=== PATIENT | female | born 1955 | race Caucasian/White ===

== ENCOUNTER 2019-01-30 09:20 | Day surgery (SDC) | payer BC ==
[~2019-01-30 09:20] MED LIST: Metoclopramide 10 MG/2 ML SDV IV PRN; Sodium Chloride 0.9% 1,000 ML IV SCH
== END 2019-01-30 11:40 | disposition home or self-care (01) ==
LOC: LB.SDS 09:20
PROVIDERS: ATTEND Surgery
DX: Z12.11 Encounter for screening for malignant neoplasm of colon (principal); K57.92 Diverticulitis of intestine, part unspecified, without perforation or abscess without bleeding; Z88.2 Allergy status to sulfonamides; Z53.09 Procedure and treatment not carried out because of other contraindication
CPT/HCPCS: J7030

== ENCOUNTER 2019-04-17 07:05 | Day surgery (SDC) | payer BC ==
[2019-04-17] MEDS ORDERED: Atropine 0.4 MG/ML SDV ONE (09:30)
[2019-04-17] MEDS ORDERED: Midazolam 1 MG/ML 2 ML SDV ONE (09:30)
[2019-04-17] MEDS ORDERED: Propofol 1,000 MG/100 ML SDV ONE (09:30)
--- NOTE | 2019-04-17 10:21 | OR ---
DATE OF OPERATION: 04/17/2019 PREOPERATIVE DIAGNOSIS: Surveillance colonoscopy. POSTOPERATIVE DIAGNOSIS: Surveillance colonoscopy. PROCEDURE: Colonoscopy with polypectomy. ESTIMATED BLOOD LOSS: Minimal. COMPLICATIONS: None. INDICATION FOR THE PROCEDURE: The patient is a 63-year-old female who is here today for a colonoscopy. She last had a colonoscopy 8 years ago, was found to have a history of polyps at that time. She also recently had a bout of diverticulitis approximately 5 months ago. Has had no trouble since then. She is here today for surveillance colonoscopy. DESCRIPTION OF PROCEDURE: Informed consent was obtained from the patient. The patient was taken to the operating room, placed on table in left lateral decubitus position. Monitored anesthesia care was administered. Digital rectal exam performed and was normal. Colonoscope was then advanced through the anus directed toward the cecum. Cecum was reached and identified by appendiceal orifice and ileocecal valve. There was a small sessile polyp in the cecum. This did bleed on irrigation. Multiple cold forceps biopsies were taken. There was some persistent bleeding which did stop potentially further attempts of complete polypectomy hindered by the angles. It did appear some remaining polyp did remain. Decision was made to leave this for now due to bleeding concerns as well as wait for final pathology. Colonoscope then further withdrawn. No additional polyps were identified. She did have some moderate descending and sigmoid diverticulosis, both large and small. Colonoscope then slowly withdrawn into the rectum. Rectum was also otherwise unremarkable. Colonoscope then withdrawn fully. FINDINGS: Sigmoid and descending diverticulosis as well as cecal polyp. RECOMMENDATIONS: We will follow up on biopsy results and if benign, will need a repeat colonoscopy for further endoscopic polypectomy. BRENARDO /[id number]
== END 2019-04-17 11:00 | disposition home or self-care (01) ==
LOC: LB.SDS 07:05
PROVIDERS: ATTEND Surgery
DX: Z12.11 Encounter for screening for malignant neoplasm of colon (principal); K51.40 Inflammatory polyps of colon without complications; K57.30 Diverticulosis of large intestine without perforation or abscess without bleeding; Z88.2 Allergy status to sulfonamides; Z86.010 Personal history of colon polyps
CPT/HCPCS: 45380; 88305; G0121; J0461; J2250; J2704; J7030

== ENCOUNTER 2020-11-27 10:04 | Emergency (ER) | payer BC ==
[2020-11-27] MEDS ORDERED: Ondansetron 4 MG/2 ML SDV IVPUSH ONE (10:13)
--- NOTE | 2020-11-27 10:19 | EDM.PDOC ---
ED HPI GENERAL MEDICAL PROBLEM - General Chief Complaint: Gastrointestinal Problem Stated Complaint: abd pain Time Seen by Provider: 11/27/20 10:10 Source of Information: Reports: Patient History Limitations: Reports: No Limitations - History of Present Illness INITIAL COMMENTS - FREE TEXT/NARRATIVE: 64 year old female with PMH of diverticulitis presents with lower abd pain, in creased in LLQ since last night. Describes the pain as crampy, 8/10. States this feels like last episode of diverticulitis. Denies any CP, SOB, N/V/D (at this time), fever, cough, or MICHAEL. She took tylenol at 0630 AM without relief. 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: Reports: Acetaminophen Left Lower Abdomen Pain Score (Numeric/FACES): 4 - Related Data Allergies Allergy/AdvReac Type Severity Reaction Status Date / Time Sulfa (Sulfonamide Allergy Rash Verified 04/15/19 09:28 Antibiotics) Home Meds: Home Meds L.acidoph,Paracasei, B.lactis [Probiotic] 1 cap PO DAILY 11/27/20 [History] Past Medical History HEENT History: Reports: Impaired Vision Gastrointestinal History: Reports: Diverticulosis 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: Musculoskeletal History: Reports: Fibromyalgia - Past Surgical History HEENT Surgical History: Reports: None GI Surgical History: Reports: Colonoscopy, Polypectomy Social & Family History - Family History Family Medical History: No Pertinent Family History - Caffeine Use Caffeine Use: Reports: Tea ED ROS GENERAL - Review of Systems Review Of Systems: See Below Constitutional: Reports: Fever HEENT: Reports: No Symptoms Respiratory: Reports: No Symptoms Cardiovascular: Reports: No Symptoms Endocrine: Reports: No Symptoms GI/Abdominal: Reports: Abdominal Pain : Reports: No Symptoms Musculoskeletal: Reports: No Symptoms Skin: Reports: No Symptoms Neurological: Reports: No Symptoms Psychiatric: Reports: No Symptoms Hematologic/Lymphatic: Reports: No Symptoms Immunologic: Reports: No Symptoms ED EXAM, GI/ABD - Physical Exam Exam: See Below Exam Limited By: No Limitations General Appearance: Alert, Mild Distress Eyes: Bilateral: Normal Appearance Ears: Normal External Exam, Hearing Grossly Normal Nose: Normal Inspection, No Blood Throat/Mouth: Normal Inspection, Normal Voice Head: Atraumatic Neck: Normal Inspection, Non-Tender, Full Range of Motion Respiratory/Chest: No Respiratory Distress, Lungs Clear, Normal Breath Sounds, No Accessory Muscle Use, Chest Non-Tender Cardiovascular: Normal Peripheral Pulses, Regular Rate, Rhythm, No Edema, No JVD, No Murmur GI/Abdominal Exam: Normal Bowel Sounds, Soft, No Mass, Tender Back Exam: Normal Inspection, Full Range of Motion Extremities: Normal Inspection, Normal Range of Motion, Non-Tender, No Pedal Edema, Normal Capillary Refill Neurological: Alert, Oriented, Normal Cognition, Normal Gait, No Motor/Sensory Deficits Psychiatric: Normal Affect, Normal Mood Skin Exam: Warm, Dry, Intact, Normal Color, No Rash Lymphatic: No Adenopathy Course - Vital Signs Last Recorded V/S: Last Vital Signs Temp 99.0 F 11/27/20 10:14 Pulse 70 11/27/20 11:00 Resp 16 11/27/20 11:00 BP 133/78 11/27/20 11:00 Pulse Ox 94 L 11/27/20 11:00 - Orders/Labs/Meds Orders: Active Orders 24 hr Category Date Time Status Abdomen Pelvis w Cont [CT] Stat Exams 11/27/20 10:10 Taken Iopamidol [Isovue-300 (61%)] Med 11/27/20 11:11 Active 100 ml IV . DIRECTED PRN Sodium Chloride 0.9% [Normal Saline] Med 11/27/20 11:15 Active 50 ml FLUSH ONETIME Medication Orders Iopamidol (Iopamidol 612 Mg/Ml 100 Ml Bottle) 100 ml IV . DIRECTED PRN PRN Reason: RADIOLOGY EXAM Stop: 11/28/20 11:12 Sodium Chloride (Sodium Chloride 0.9% 50 Ml Sdv) 50 ml FLUSH ONETIME YANETH Labs: Laboratory Tests 11/27/20 11/27/20 Range/Units 10:31 10:38 WBC 16.6 H D (4.0-11.0) K/uL RBC 3.92 (3.80-5.80) M/uL Hgb 12.4 (11.5-16.5) g/dL Hct 37.0 (37.0-47.0) % MCV 94 (76-96) fL MCH 31.6 (27.0-32.0) pg MCHC 33.5 (31.0-35.0) g/dL RDW 14.1 (11.0-16.0) % Plt Count 330 D (150-500) K/uL MPV 11.7 H (6.0-10.0) fL Neut % (Auto) 77.6 H (45.0-70.0) % Lymph % (Auto) 6.7 L (20.0-40.0) % [place] % (Auto) 14.7 H (3.0-10.0) % Eos % (Auto) 0.5 L (1.0-5.0) % Baso % (Auto) 0.5 (0.0-0.5) % Neut # (Auto) 12.89 H (2.00-7.50) K/uL Lymph # (Auto) 1.11 L (1.50-4.00) K/uL [place] # (Auto) 2.44 H (0.20-0.80) K/uL Eos # (Auto) 0.09 (0.04-0.40) K/uL Baso # (Auto) 0.08 (0.02-0.10) K/uL Sodium 140 (136-145) mmol/L Potassium 4.1 (3.5-5.1) mmol/L Chloride 103 (98-107) mmol/L Carbon Dioxide 24.8 (21.0-32.0) mmol/L Anion Gap 16.3 H (5.0-15.0) mmol/L BUN 15 (8-26) mg/dL Creatinine 0.57 D (0.55-1.02) mg/dL Est Cr Clr Drug Dosing 7.23 mL/min Estimated GFR (MDRD) > 60 (>60) MLS/MIN BUN/Creatinine Ratio 26.3 H (6-25) Glucose 107 H (74-100) mg/dL Calcium 8.8 (8.5-10.1) mg/dL Total Bilirubin 1.2 H (0.0-1.0) mg/dL AST 77 H (15-37) U/L ALT 68 (12-78) U/L Alkaline Phosphatase 94 (46-116) U/L C-Reactive Protein 71.3 H (0.0-3.0) mg/L Total Protein 7.7 (6.4-8.2) g/dL Albumin 3.9 (3.4-5.0) g/dL Globulin 3.8 (2.2-4.2) g/dL Albumin/Globulin Ratio 1.0 (0.8-2.0) Meds: Medications Generic Name Dose Route Start Last Admin Trade Name Freq PRN Reason Stop Dose Admin Iopamidol 100 ml 11/27/20 11:11 Iopamidol 612 Mg/Ml 100 Ml Bottle IV 11/28/20 11:12 . DIRECTED PRN RADIOLOGY EXAM Sodium Chloride 50 ml 11/27/20 11:15 Sodium Chloride 0.9% 50 Ml Sdv FLUSH ONETIME YANETH Discontinued Medications Generic Name Dose Route Start Last Admin Trade Name Freq PRN Reason Stop Dose Admin Morphine Sulfate 4 mg 11/27/20 10:13 11/27/20 10:47 Morphine 4 Mg/Ml Vial IVPUSH 11/27/20 10:14 2 mg ONETIME ONE Administration Ondansetron HCl 4 mg 11/27/20 10:13 11/27/20 10:26 Ondansetron 4 Mg/2 Ml Sdv IVPUSH 11/27/20 10:14 4 mg ONETIME ONE Administration Departure - Departure Time of Disposition: 11:49 Disposition: Home, Self-Care 01 Condition: Good Clinical Impression: Diverticulitis Leukocytosis Qualifiers: Leukocytosis type: unspecified Qualified Code(s): D72.829 - Elevated white blood cell count, unspecified - Discharge Information *PRESCRIPTION DRUG MONITORING PROGRAM REVIEWED*: Not Applicable *COPY OF PRESCRIPTION DRUG MONITORING REPORT IN PATIENT POP: Not Applicable Instructions: Diverticulitis, [id number] Forms: ED Department Discharge Additional Instructions: Take 1 tramadol every 6 hours as needed for severe pain. Tylenol may be taken for milder pain. Augmentin twice a day for 10 days. Return to ED for any increased or new concerning symptoms. Follow up with the clinic after you finish the antibiotics for scheduling a colonscopy. Sepsis Event Note (ED) - Focused Exam Vital Signs: Vital Signs Temp Pulse Resp BP Pulse Ox 11/27/20 11:00 70 16 133/78 94 L 11/27/20 10:37 84 18 170/81 H 97 11/27/20 10:14 99.0 F 84 18 170/81 H 97 - My Orders Last 24 Hours: My Active Orders 11/27/20 10:10 Abdomen Pelvis w Cont [CT] Stat 11/27/20 11:11 Iopamidol [Isovue-300 (61%)] 100 ml IV . DIRECTED PRN 11/27/20 11:15 Sodium Chloride 0.9% [Normal Saline] 50 ml FLUSH ONETIME - Assessment/Plan Last 24 Hours: My Active Orders 11/27/20 10:10 Abdomen Pelvis w Cont [CT] Stat 11/27/20 11:11 Iopamidol [Isovue-300 (61%)] 100 ml IV . DIRECTED PRN 11/27/20 11:15 Sodium Chloride 0.9% [Normal Saline] 50 ml FLUSH ONETIME Plan: DDX: appendicitis, gastritis, bowel obstruction. CT shows acute diverticulitis.
[2020-11-27] MEDS: Morphine 4 MG/ML VIAL IVPUSH ONE ×3 (10:26→10:47)
[2020-11-27] MEDS ORDERED: Iopamidol 612 MG/ML 100 ML Bottle IV PRN (11:11)
[2020-11-27] MEDS ORDERED: Sodium Chloride 0.9% 50 ML SDV FLUSH SCH (11:15)
--- NOTE | 2020-11-28 09:46 | CT ---
Date of Service: 11/27/20 Clinical Data: LLQ pain, PMH diverticulitis ENHANCED ABDOMEN AND PELVIC CT: Multislice axial acquisition through the abdomen and pelvis with IV, but without oral contrast was performed. Comparison is made to a prior exam dated 04/06/16. There are mild atelectatic changes in the dependent portion of both lower lungs. The lung bases are otherwise clear. The liver is normal size with homogeneous attenuation. No focal hepatic lesions. The gallbladder is distended. No gallbladder wall thickening. No pericholecystic fluid. No calcified gallstones. No biliary duct dilatation. The spleen is small in size. It may be a splenic remnant. The pancreas appears normal. The right and left adrenals appear normal. There are small cysts in both kidneys. No hydronephrosis or hydroureter. The bladder is partially fluid filled. It appears normal. There is diverticulosis of the descending and sigmoid colon. There is marked mural thickening within the sigmoid colon with adjacent fat stranding. The findings are probably related to diverticulitis. No evidence of diverticular abscess. There is a small amount of free fluid in the pelvis. There is also fluid adjacent to the spleen consistent with minimal ascites. No free air. No dilated loops of bowel. No adenopathy. No aortic aneurysm or dissection. IMPRESSION: Diverticulosis. Marked mural thickening of the sigmoid colon with adjacent fat stranding most likely related to diverticulitis/colitis. No evidence of diverticular abscess. The possibility of an infiltrating neoplasm should be considered and colonoscopy after treatment is recommended, Other findings as discussed above. [id number] [facility]
== END 2020-11-27 12:00 | disposition home or self-care (01) ==
LOC: LB.ED 10:04
DX: K57.92 Diverticulitis of intestine, part unspecified, without perforation or abscess without bleeding (principal); D72.829 Elevated white blood cell count, unspecified; Z88.2 Allergy status to sulfonamides
CPT/HCPCS: 36415; 74177; 80053; 85025; 86140; 96374; 99284; 99284-25; J2270; J2405; Q9967

== ENCOUNTER 2020-12-12 14:30 | Emergency (ER) | payer BC ==
--- NOTE | 2020-12-12 15:09 | EDM.PDOC ---
ED HPI GENERAL MEDICAL PROBLEM - General Chief Complaint: Genitourinary Problem Stated Complaint: possible UTI Time Seen by Provider: 12/12/20 14:55 Source of Information: Reports: Patient History Limitations: Reports: No Limitations - History of Present Illness INITIAL COMMENTS - FREE TEXT/NARRATIVE: urinary frequency, burning and urgency for 1 day. no fever or chills no v/v no abd or flank pain h/o UTI in the remote past no other medical problems. 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: Musculoskeletal History: Reports: Fibromyalgia - Past Surgical History HEENT Surgical History: Reports: None GI Surgical History: Reports: Colonoscopy, Polypectomy Social & Family History - Family History Family Medical History: No Pertinent Family History - Caffeine Use Caffeine Use: Reports: Coffee ED ROS GENERAL - Review of Systems Review Of Systems: See Below Constitutional: Reports: No Symptoms HEENT: Reports: No Symptoms Respiratory: Reports: No Symptoms Cardiovascular: Reports: No Symptoms GI/Abdominal: Reports: No Symptoms : Reports: Dysuria, Frequency, Urgency Musculoskeletal: Reports: No Symptoms Skin: Reports: No Symptoms Neurological: Reports: No Symptoms ED EXAM, RENAL/ - Physical Exam Exam: See Below Exam Limited By: No Limitations General Appearance: Alert Head: Atraumatic Respiratory/Chest: No Respiratory Distress Cardiovascular: Normal Peripheral Pulses GI/Abdominal: Normal Bowel Sounds Extremities: Normal Inspection Neurological: Alert, Oriented, No Motor/Sensory Deficits Course - Vital Signs Last Recorded V/S: Last Vital Signs Temp 36.3 C 12/12/20 14:30 Pulse 78 12/12/20 14:30 Resp 16 12/12/20 14:30 BP 142/78 H 12/12/20 14:30 Pulse Ox 97 12/12/20 14:30 - Orders/Labs/Meds Labs: Laboratory Tests 12/12/20 Range/Units 14:34 Urine Color Yellow Urine Appearance Cloudy (CLEAR) Urine pH 7.0 (5.0-8.0) Ur Specific [place] 1.025 (1.003-1.030) Urine Protein 30 H (NEGATIVE) mg/dL Urine Glucose (UA) Negative (NEGATIVE) mg/dL Urine Ketones Negative (NEGATIVE) mg/dL Urine Occult Blood Large H (NEGATIVE) Urine Nitrite Positive H (NEGATIVE) Urine Bilirubin Negative (NEGATIVE) Urine Urobilinogen 0.2 (0.2-1.0) E.U./dL Ur Leukocyte Esterase Moderate H (NEGATIVE) Urine RBC 40-50 H /HPF Urine WBC 75-100 H /HPF Ur Epithelial Cells Few /HPF Urine Bacteria Moderate H /HPF - Re-Assessments/Exams Free Text/Narrative Re-Assessment/Exam: 12/12/20 15:07 UA ++ WBC, Bacteria and Nitrites will start Cipro BID tab it worked for her in the past Departure - Departure Time of Disposition: 15:08 Disposition: Home, Self-Care 01 Condition: Good Clinical Impression: UTI, Urinary tract infectious disease - Discharge Information *PRESCRIPTION DRUG MONITORING PROGRAM REVIEWED*: Not Applicable *COPY OF PRESCRIPTION DRUG MONITORING REPORT IN PATIENT POP: Not Applicable Sepsis Event Note (ED) - Evaluation Sepsis Screening Result: No Definite Risk - Focused Exam Vital Signs: Vital Signs Temp Pulse Resp BP Pulse Ox 12/12/20 14:30 36.3 C 78 16 142/78 H 97 - Problem List & Annotations (1) UTI, Urinary tract infectious disease SNOMED Code(s): 69816165 Code(s): N39.0 - URINARY TRACT INFECTION, SITE NOT SPECIFIED Status: Acute Priority: Low - Problem List Review Problem List Initiated/Reviewed/Updated: Yes - Assessment/Plan Plan: - please take antibiotics as prescribed - increase fluids intake - return to the ER if symptoms got worse or any concerns
[2020-12-12] MEDS ORDERED: Ciprofloxacin 500 MG Tab ONE (15:10)
== END 2020-12-12 15:15 | disposition home or self-care (01) ==
LOC: LB.ED 14:30
DX: N39.0 Urinary tract infection, site not specified (principal); D72.829 Elevated white blood cell count, unspecified; Z88.2 Allergy status to sulfonamides
CPT/HCPCS: 81001; 99282; 99283; A9270-GY

== ENCOUNTER 2024-08-14 08:14 | Day surgery (SDC) | payer MEDICARE ==
[~2024-08-14 08:14] MED LIST changes: -Sodium Chloride 0.9% 1,000 ML IV SCH
[2024-08-14] MEDS: Sodium Chloride 0.9% 1,000 ML IV SCH (08:57)
[2024-08-14] MEDS ORDERED: Propofol 1,000 MG/100 ML SDV ONE (09:50)
== END 2024-08-14 10:46 | disposition home or self-care (01) ==
LOC: LB.SDS 08:14
PROVIDERS: ATTEND Surgery
DX: Z12.11 Encounter for screening for malignant neoplasm of colon (principal); K57.30 Diverticulosis of large intestine without perforation or abscess without bleeding; Z88.2 Allergy status to sulfonamides; Z79.899 Other long term (current) drug therapy; Z86.0100 Personal history of colon polyps, unspecified
CPT/HCPCS: J2704; J7030

== ENCOUNTER 2024-12-27 15:05 | Emergency (ER) | payer MEDICARE ==
[2024-12-27] MEDS ORDERED: Nitrofurantoin Macrocrystal 50 MG Cap ONE (16:00)
[2024-12-27 16:04] LABS: APPEARANCE,URINE SLIGHTLY CLOUDY (CLEAR); BILIRUBIN,URINE NEGATIVE (NEGATIVE); COLOR,URINE YELLOW; GLUCOSE,URINE NEGATIVE (NEGATIVE); KETONES,URINE NEGATIVE (NEGATIVE); LEUKOCYTE ESTERASE,URINE SMALL (NEGATIVE); NITRITE,URINE NEGATIVE (NEGATIVE); OCCULT BLOOD,URINE LARGE (NEGATIVE); PROTEIN,URINE 30 mg/dL (NEGATIVE); UROBILINOGEN,URINE 0.2 E.U./dL (0.2-1.0)
[2024-12-27 16:05] LABS: BACTERIA,URINE FEW /HPF; RBC,URINE >100 /HPF; SQUAMOUS EPITHELIAL CELLS,UR FEW /HPF
== END 2024-12-27 16:13 | disposition home or self-care (01) ==
LOC: LB.ED 15:05
DX: N39.0 Urinary tract infection, site not specified (principal); Z88.2 Allergy status to sulfonamides
CPT/HCPCS: 81001; 99283; A9270-GY